=== PATIENT | male | born 1955 | race Caucasian/White ===

== ENCOUNTER 2018-07-01 13:22 | Day surgery (SDC) | payer OTHER ==
[2018-07-01] MEDS ORDERED: LIDOCAINE 100 MG SYRINGE (16:05)
[2018-07-01] MEDS ORDERED: PROPOFOL 20 ML (16:05)
[2018-07-01] MEDS ORDERED: FENTAnyl 50 MCG/ML VIAL (16:06)
== END 2018-07-01 19:26 | disposition home or self-care (01) ==
LOC: GIL 13:22
DX: K21.9 Gastro-esophageal reflux disease without esophagitis (principal)
CPT/HCPCS: 43239; 88305; 88312; 88313